=== PATIENT | female | born 1995 | race Hispanic/Latino ===

== ENCOUNTER 2018-04-28 14:44 | Outpatient (CLI) | payer OTHER, BC ==
--- NOTE | 2018-04-28 17:15 | ULT ---
BILATERAL BREAST ULTRASOUND: Date: 04/28/18 HISTORY: Galacturia. FINDINGS/IMPRESSION: Sonographic evaluation of the retroareolar aspects of the breasts performed bilaterally. The left-sided ducts appear more prominent compared to the right. No definite mass is seen in either retroareolar region. Evaluation with MRI brain with and without IV contrast using the pituitary protocol is recommended to look for prolactinoma. POS: NILAM
== END 2018-04-28 14:45 | disposition home or self-care (01) ==
LOC: BICULT 14:44
PROVIDERS: ATTEND Family Medicine
DX: O92.6 Galactorrhea (principal)

== ENCOUNTER 2018-05-03 04:08 | Emergency (ER) | payer OTHER, BC ==
[2018-05-03 04:50] LABS: #Lymphocytes 1.7 thou/uL (1.20-3.40); #Monocytes 0.5 thou/uL (0.11-0.59); %Basophils 0.3 % (0.0-1.0); %Eosinophils 0.1 % (0.0-10.0); %Lymphocytes 18.7 % (21.0-51.0); %Monocytes 5.2 % (0.0-10.0); %Neutrophils 75.6 % (42.0-75.0); Hemoglobin 7.5 g/dL (12.0-16.0); Mean Corpuscular HGB CONC 34.6 g/dL (32.0-36.0); Mean Corpuscular Volume 92.6 fL (78.0-98.0); Mean Platelet Volume 8.4 fL (7.4-10.4); Platelet Count 184 thou/uL (130-400); RBC Distribution Width 12.2 % (11.5-14.5); Red Blood Cell (RBC) Count 2.33 mill/uL (4.20-5.40); White Blood Cell (WBC) Count 9.2 thou/uL (4.8-10.8)
[2018-05-03 05:09] LABS: ALT (SGPT) 16 U/L (8-55); AST (SGOT) 17 U/L (5-34); Albumin 3.9 g/dL (3.5-5.0); Alkaline Phosphatase 40 U/L (40-150); Anion Gap 8 mmol/L (10-20); BUN (Urea Nitrogen) 7 mg/dL (7.0-18.7); Bilirubin, Total 0.4 mg/dL (0.2-1.2); Calc. Creatinine Clearance 0 mL/min (70-130); Calcium 8.5 mg/dL (7.8-10.44); Carbon Dioxide 21 mmol/L (22-29); Chloride 110 mmol/L (98-107); Estimated GFR-MDRD Greater than 90; Globulin 2.4 g/dL (2.4-3.5); Glucose 125 mg/dL (70-105); Potassium 3.4 mmol/L (3.5-5.1); Protein, Total 6.3 g/dL (6.0-8.3); Sodium 136 mmol/L (136-145)
[2018-05-03 05:14] LABS: Bilirubin Negative (Negative); Blood, Urine Large (Negative); Clarity CLOUDY (Clear); Glucose, Urine (Dipstick) Negative (Negative); Leukocyte Negative (Negative); Nitrite Negative (Negative); Pregnancy Test - Urine (BHCG) Negative (Negative); Pregu Control Background? CLEAR/WHITE (CLR/WHITE); Pregu Control Bar Appear? YES (CONTROL BAR); Protein, Urine (Dipstick) Negative (Neg-Trace); Specific Gravity, Urine 1.012 (1.002-1.036); pH, Urine 7.5 (5.0-9.0)
[2018-05-03 05:15] LABS: Specific Gravity 1.012 (1.002-1.036)
[2018-05-03 05:16] LABS: Bacteria/HPF None Seen HPF (None Seen); Hyaline Casts/LPF 0-3 HYALINE CAST LPF (0-3 Hyaline); Pathc Cast-AUWi Flag 0.14 (0-2.49); RBC/HPF GREATER THAN 50-TNTC HPF (0-3); Squamous Epithelial 0-3 HPF (0-3); WBC/HPF 0-3 HPF (0-3)
[2018-05-03] MEDS ORDERED: Acetaminophen 500 MG TAB ONE (06:07)
--- NOTE | 2018-05-03 07:22 | ULT ---
TRANSVAGINAL PELVIC ULTRASOUND: Date 05/03/18 INDICATION: Pelvic pain with abnormal bleeding; history of negative test. Started Depo shots in 2017. FINDINGS: The uterus measures 8.1 x 3.8 x 5.6 cm. The endometrial stripe measures 8.0 mm. The right ovary measu res 2.1 x 1.2 x 2.1 cm. The left ovary measures 3.3 x 3.7 x 3.3 cm. There is normal flow to both ovar ies. There is a 3.3 cm cyst within the left ovary. There is moderate free fluid in the pelvis. IMPRESSION: 1. Mildly prominent left ovarian follicular cyst. 2. Moderate free fluid in the pelvis is nonspecific. Findings may reflect a ruptured cyst. Follow-up examination in 6-8 weeks is recommended. POS: BH
== END 2018-05-03 06:15 | disposition home or self-care (01) ==
LOC: ERS 04:08
DX: N93.9 Abnormal uterine and vaginal bleeding, unspecified (principal)
CPT/HCPCS: 36415; 76856; 80053; 81003; 81015; 81025; 85025; 86850; 86900; 86901; 99284

== ENCOUNTER 2021-03-13 | Outpatient (CLI) | payer OTHER | END 2021-03-13 16:05 | disposition home or self-care (01) ==

== ENCOUNTER 2023-12-15 10:44 | Outpatient (CLI) | payer OTHER | END 2023-12-15 10:45 | disposition home or self-care (01) | LOC: ULT 10:44 | PROVIDERS: ATTEND Family Medicine | DX: R10.13 Epigastric pain (principal) | CPT/HCPCS: 76705 ==

== ENCOUNTER 2024-03-14 13:13 | Outpatient (CLI) | payer OTHER ==
[2024-03-14] MEDS ORDERED: Sterile Water 10 ML ONE (14:35)
[2024-03-14] MEDS ORDERED: Bacteriostatic Normal Saline 30 ML VIAL ONE (14:35)
[2024-03-14] MEDS ORDERED: Sincalide 5 MCG VIAL ONE (14:35)
== END 2024-03-14 13:14 | disposition home or self-care (01) ==
LOC: NM 13:13
PROVIDERS: ATTEND Surgery
DX: R10.11 Right upper quadrant pain (principal)
CPT/HCPCS: 78227; A9537; J2805

== ENCOUNTER 2025-04-09 12:45 | Outpatient (CLI) | payer BC, OTHER | END 2025-04-09 12:46 | disposition home or self-care (01) | LOC: ULT 12:45 | PROVIDERS: ATTEND Family Medicine | DX: R10.11 Right upper quadrant pain (principal) | CPT/HCPCS: 76705 ==